=== PATIENT | male | born 1995 | race Caucasian/White ===

== ENCOUNTER 2024-06-13 18:04 | Emergency (ER) | payer OTHER, SELFPAY ==
[2024-06-13 18:23] VITALS: BP 140/85; PULSE 96; RESP 16; TEMP 37.3; O2SAT 100
--- NOTE | 2024-06-13 18:55 | ED.GENADULT ---
HPI - General Adult General Chief complaint: Upper Respiratory Infection Stated complaint: Sore Throat Source: patient Mode of arrival: ambulatory Limitations: no limitations History of Present Illness HPI narrative: Patient presents for evaluation of sick symptoms for the last 3 days. Symptoms include fever, sinus congestion, sore throat, and generalized body aches. His children tested positive for strep today. He denies cough, shortness of breath, nausea, vomiting, diarrhea. He is not taking any medication to assist with his symptoms. Related Data Allergies Allergy/AdvReac Type Severity Reaction Status Date / Time Penicillins Allergy Hives Verified 06/13/24 18:39 Review of Systems Review of Systems: CONSTITUTIONAL: Reports fever. Denies chills. EYES: Denies visual changes, redness, or discharge. ENT: Reports sinus congestion and sore throat. CARDIOVASCULAR: Denies chest pain, palpitations, or edema. RESPIRATORY: Denies cough or dyspnea. GASTROINTESTINAL: Denies abdominal pain, nausea, vomiting, or diarrhea. GENITOURINARY: Denies dysuria or hematuria. SKIN: Denies rash or itching. MUSCULOSKELETAL: Reports generalized body aches. NEUROLOGIC: Denies headache, numbness, dizziness, or weakness. PSYCHIATRIC: Denies anxiety or depression. [facility] Past Medical History Medical History No pertinent past medical history Surgical History Surgical History No pertinent past surgical history Family History Family History Mother Family history non-contributory Social History Social History Substance use: never Living arrangements: with family Gender identity (if verbalized by the patient): Male Spiritual care concerns: No Exam Narrative: GENERAL: Well-appearing, well-nourished, and in no acute distress. HEAD: Normocephalic, atraumatic. EYES: PERRLA and EOMI. ENT: Nares clear, no rhinorrhea or epistaxis. Mucous membranes moist. bilateral tonsillar enlargement with erythema and white exudate. Uvula is midline. Bilateral TMs pearly rodas nonbulging NECK: Supple. No adenopathy or masses. No carotid bruits or JVD CHEST: Clear to auscultation. No respiratory distress. No wheezes rales or rhonchi HEART: Regular rate and rhythm. No murmur heard. Normal peripheral pulses. ABDOMEN: Soft, nontender, nondistended, normal active bowel sounds. EXTREMITIES: Normal range of motion. No edema. SKIN: Warm, dry, no rash. NEURO: No focal deficits. Alert and oriented x3. PSYCH: Normal mood and affect. Course Course Emergency Course: This is a 28-year-old male who presented for evaluation of sore throat. Rapid strep positive. Will treat with cephalexin due to amoxicillin allergy. Given Decadron while here. Follow-up with primary provider. [id number] agents for symptom management. Go to the ER for worsening symptoms. Patient in agreement with plan of care. Level of Care: Express Care Visit Vital Signs Vital signs: Vital Signs Temperature 37.3 C 06/13/24 18:23 Pulse Rate 96 06/13/24 18:23 Respiratory Rate 16 06/13/24 18:23 Blood Pressure 140/85 06/13/24 18:23 Pulse Oximetry 100 06/13/24 18:23 Temperature 37.3 C 06/13/24 18:23 Pulse Rate 96 06/13/24 18:23 Respiratory Rate 16 06/13/24 18:23 Blood Pressure 140/85 06/13/24 18:23 Pulse Oximetry 100 06/13/24 18:23 Medical Decision Making Vital Signs Vital Signs: Vital Signs Temperature 37.3 C 06/13/24 18:23 Pulse Rate 96 06/13/24 18:23 Respiratory Rate 16 06/13/24 18:23 Blood Pressure 140/85 06/13/24 18:23 Pulse Oximetry 100 06/13/24 18:23 Temperature 37.3 C 06/13/24 18:23 Pulse Rate 96 06/13/24 18:23 Respiratory Rate 16 06/13/24 18:23 Blood Pressure 140/85 06/13/24 18:23 Pulse Oximetry 100 06/13/24 18:23 Discharge Plan Discharge Clinical Impression: Strep throat Patient Disposition: Home, Self-Care Condition: Stable Instructions: Antibiotic Form, Strep Throat (ED) Patient Language: [place] Prescriptions: New cephalexin 500 mg capsule 500 mg PO Q12H Qty: 20 0RF Follow-up/Referrals: Manjit Fajardo MD [Physician] - Time of Disposition: 18:55
[2024-06-13 19:02] LABS: EDCOVIDSCREEN Negative (Negative); EDINFLUASCREEN Negative (Negative); EDINFLUBSCREEN Negative (Negative); EDSTREPNEGPOS1 Positive (Negative)
[2024-06-13] MEDS: dexAMETHasone SOD PHOS INJ 10 MG/ML 1 ML VIAL PO (19:03)
== END 2024-06-13 19:08 | disposition home or self-care (01) ==
PROVIDERS: Emergency Provider Nurse Practitioner
DX: J02.0 Streptococcal pharyngitis (principal); Z20.822 Contact with and (suspected) exposure to COVID-19
CPT/HCPCS: 87426; 87804; 87880; 99203; G0463; J1100